=== PATIENT | female | born 1980 ===

== ENCOUNTER 2016-07-14 12:10 | Emergency (ER) | payer OTHER ==
[2016-07-14 15:00] VITALS: BP 107/49
--- NOTE | 2016-07-14 15:17 | UC ---
Eye Complaint HPI - HPI Summary HPI Summary: CC: eye redness and discharge and pain when she blinks for 4 days now, despite rx with emycin ointment. Pt does not wear contacts. Pt states she also has bumps on her thighs that are red, that she awoke with this am. Pt states she thought had pinkeye on Jul 11 and went to her PCP and was prescribed emycin ointment for herself and her 5 yo daughter got azithromycin liquid. Mother and PCP thought Colby also had Pinkeye and PCP thought azithromycin would clear it up. On Jul 12, pt started with runny nose, nasal congestion, headache, fever to 103 , bodyaches, sorethroat, fatigue, cough productive of yellow sputum. Pt states she and daughter have had fever everyday since. Pt states 07/12/16, her eye was worse despite the emycin ointment, and each day her both eyes have gotten worse. Pt and her daughter both got their flu shots. Pt states her 10 month old had same illness last week, was on Amox for ear infection and he is better. Now her 11 yo son is now having gastroenteritis and is not on an antibiotic. - History of Current Complaint Chief Complaint: UCEye Stated Complaint: EYE COMPLAINT,SKIN COMPLAINT Time Seen by Provider: 07/14/16 15:07 Hx Obtained From: Patient Hx Last Menstrual Period: 07/06/16 ?: No Onset/Duration: Gradual Onset, Lasting Days, Still Present Timing: Constant Severity Initially: Moderate Severity Currently: Moderate Pain Intensity: 3 Pain Scale Used: 0-10 Numeric Location of Injury: Other - no injury, red eyes Character: Sharp - burning Aggravating Factor(s): Blinking Alleviating Factor(s): Nothing Associated Signs And Symptoms: Positive: Drainage (Purulent) Related History: Diagnosed As: - conjunctivitis 4 days ago, Meds/Drops Used: - emycin ointment - Risk Factors Penetrating Injury Risk Factor: Negative Acute Glaucoma Risk Factors: Negative Optic Artery Occlusion Risk Factors: Negative - Allergies/Home Medications Allergies/Adverse Reactions: Allergies Allergy/AdvReac Type Severity Reaction Status Date / Time Sulfa Antibiotics Allergy Difficulty Verified 07/14/16 15:00 Breathing/Wheezing Home Medications: Home Medications Erythromycin OPHTH.OINT* [Ilotycin OPHTH.OINT*] 1 applic BOTH EYES QID 07/14/16 [History Confirmed 07/14/16] PMH/Surg Hx/FS Hx/Imm Hx Endocrine History Of: Reports: Hypothyroidism - on meds - Surgical History Surgical History: None - Family History Known Family History: Positive: Other - no fam hx of glaucoma - Social History Occupation: Employed Part-time - [employer], home health aid Lives: With Family Alcohol Use: None Substance Use Type: None Smoking Status (MU): Never Smoked Tobacco Review of Systems Constitutional: Negative Skin: Negative Eyes: Drainage ENT: Negative Respiratory: Negative Cardiovascular: Negative Gastrointestinal: Negative Genitourinary: Negative Motor: Negative Neurovascular: Negative Musculoskeletal: Negative Neurological: Negative Psychological: Negative All Other Systems Reviewed And Are Negative: Yes Physical Exam Triage Information Reviewed: Yes Appearance: Well-Nourished, Ill-Appearing, Pain Distress Vital Signs: Initial Vital Signs Temp 100.1 F 07/14/16 14:55 Pulse 98 07/14/16 14:55 Resp 18 07/14/16 14:55 BP 107/49 07/14/16 14:55 Pulse Ox 100 07/14/16 14:55 100.1 temporal temp noted, [facility] noted wears glasses but didn't have them Vital Signs Reviewed: Yes Eyes: Positive: Conjunctiva Inflamed, Discharge ENT: Positive: Pharynx normal, TMs normal Neck: Positive: Supple Respiratory: Positive: Lungs clear, Normal breath sounds, No respiratory distress Cardiovascular: Positive: RRR, No Murmur, Pulses Normal, Brisk Capillary Refill Musculoskeletal: Positive: Strength Intact, ROM Intact Neurological: Positive: Alert, Muscle Tone Normal Psychological Exam: Normal Skin: Positive: rashes - macular papular rash on ant thighs Eye Complaint Course/Dx - Course Course Of Treatment: rapid A neg. influenza A and B both neg. culture of eye drainage taken - Differential Dx/Diagnosis Differential Diagnosis/HQI/PQRI: Conjunctivitis, Glaucoma, Periorbital Cellulitis, Orbital Cellulitis, Other - strep, influenza Provider Diagnoses: viral syndrome. sinusitis. conjunctivitis Discharge - Discharge Plan Condition: Stable Disposition: HOME Prescriptions: Amoxicillin (*) 875 mg PO BID #20 tab Tobramycin 0.3% OPHTH.SOFIA* 2 drop BOTH EYES Q4H #1 btl Patient Education Materials: Viral Syndrome (ED), Conjunctivitis (ED) Forms: *Work Release Referrals: Atilio Adkins [Primary Care Provider] - Terrell Sanchez MD [Medical Doctor] -
[2016-07-14] MEDS ORDERED: Acetaminophen TAB* 325 MG PO ONE (16:03)
== END 2016-07-14 17:20 | disposition home or self-care (01) ==
LOC: UCCORT 12:10
DX: B34.9 Viral infection, unspecified (principal); J32.9 Chronic sinusitis, unspecified; H10.33 Unspecified acute conjunctivitis, bilateral; Z88.2 Allergy status to sulfonamides
CPT/HCPCS: 87070; 87205; 87502; 87651; 99212; A9270-GY; G0463

== ENCOUNTER 2017-06-23 10:38 | Emergency (ER) | payer OTHER ==
[2017-06-23 11:41] VITALS: BP 135/77
--- NOTE | 2017-06-23 12:06 | UC ---
Back Pain HPI - HPI Summary HPI Summary: pt presents with c/o of right side low back/hip/sciatica pain that began after slipping on bathroom floor this morning and hitting right low back, right upper buttock. - History of Current Complaint Chief Complaint: UCBackPain Stated Complaint: BACK PAIN Time Seen by Provider: 06/23/17 11:40 Hx Obtained From: Patient Hx Last Menstrual Period: 05/26/17 ?: No Onset/Duration: Sudden Onset, Lasting Hours Severity Initially: Moderate Severity Currently: Moderate Back Pain: Is Discrete @ - right upper buttock, Character: Dull, Aching, Throbbing, Spasmodic, Stiffness Aggravating Factor(s): Movement Alleviating Factor(s): Position Associated Signs And Symptoms: Positive: Numbness - Risk Factors AAA Risk Factors: Negative TAD Risk Factors: Negative Cauda Equina Risk Factors: Negative Epidural Abscess Risk Factors: Negative - Allergies/Home Medications Allergies/Adverse Reactions: Allergies Allergy/AdvReac Type Severity Reaction Status Date / Time Sulfa Antibiotics Allergy Difficulty Verified 06/23/17 11:36 Breathing/Wheezing Home Medications: Home Medications Acetaminophen [Acetaminophen Extra Stren] 1,000 mg PO Q6H PRN 06/23/17 [History Confirmed 06/23/17] Levothyroxine TAB* [Synthroid 75 MCG TAB*] 37.5 mcg PO DAILY 06/23/17 [History Confirmed 06/23/17] PMH/Surg Hx/FS Hx/Imm Hx Previously Healthy: Yes - Surgical History Surgical History: None - Family History Known Family History: Positive: Other - no fam hx of glaucoma - Social History Occupation: Employed Full-time Lives: With Family Alcohol Use: None Substance Use Type: None Smoking Status (MU): Former Smoker When Did the Patient Quit Smoking/Using Tobacco: ~2006 - Immunization History Most Recent Influenza Vaccination: Not the 2016/2017 Season Vaccination Up to Date: No Review of Systems Constitutional: Negative Skin: Negative Eyes: Negative ENT: Negative Respiratory: Negative Cardiovascular: Negative Gastrointestinal: Negative Genitourinary: Negative Motor: Decreased ROM - low back Neurovascular: Negative Musculoskeletal: Arthralgia, Decreased ROM - low back, Myalgia Neurological: Negative Psychological: Negative Is Patient Immunocompromised?: No All Other Systems Reviewed And Are Negative: Yes Physical Exam Triage Information Reviewed: Yes Appearance: Pain Distress Vital Signs: Initial Vital Signs Temp 97.3 F 06/23/17 11:33 Pulse 96 06/23/17 11:33 Resp 18 06/23/17 11:33 BP 135/77 06/23/17 11:33 Pulse Ox 100 06/23/17 11:33 Vital Signs Reviewed: Yes Eye Exam: Normal ENT Exam: Normal Dental Exam: Normal Neck exam: Normal Respiratory Exam: Normal Cardiovascular Exam: Other Cardiovascular: Positive: Other: - IRRR, has history of IRR is managed by cardiology Musculoskeletal Exam: Other Musculoskeletal: Positive: ROM Limited @ - low back Neurological Exam: Normal Psychological Exam: Normal Skin Exam: Normal Back Pain Course/Dx - Course Course Of Treatment: I discussed the results of the UA with the pt and recommended that she f/u with her PCP or return to clinic as needed regarding this finding. - Differential Dx/Diagnosis Differential Diagnosis/HQI/PQRI: Strain, Other - right buttock contusion, sciatica Provider Diagnoses: right low back contusion. sciatica. hematuria Discharge - Discharge Plan Condition: Stable Disposition: HOME Prescriptions: Cyclobenzaprine TAB* [Flexeril 10 MG TAB*] 10 mg PO Q8H PRN #21 tab PRN Reason: Pain Ibuprofen TAB* [Motrin TAB* 800 MG] 800 mg PO Q8H PRN #30 tab PRN Reason: Pain predniSONE TAB* [Deltasone TAB*] 40 mg PO DAILY #8 tab Patient Education Materials: Sciatica (ED), Contusion in Adults (ED), Lower Back Exercises (ED) Referrals: Atilio Adkins [Primary Care Provider] - If Needed
== END 2017-06-23 12:20 | disposition home or self-care (01) ==
LOC: UCCORT 10:38
DX: S30.0XXA Contusion of lower back and pelvis, initial encounter (principal); W01.0XXA Fall on same level from slipping, tripping and stumbling without subsequent striking against object, initial encounter; Y92.012 Bathroom of single-family (private) house as the place of occurrence of the external cause; M54.30 Sciatica, unspecified side; R31.9 Hematuria, unspecified; Z88.2 Allergy status to sulfonamides; Z87.891 Personal history of nicotine dependence
CPT/HCPCS: 81003; 99212; G0463